=== PATIENT | female | born 1990 | race Hispanic/Latino ===

== ENCOUNTER → 2019-01-07 | Day surgery (SDC) | payer OTHER ==
[2018-12-26 13:16] LABS: BASOPHILS % 0.4 % (0.0-1.0); EOSINOPHILS # (AUTO) 0.1 (0.0-0.4); EOSINOPHILS % 1.5 % (0.0-6.0); HEMATOCRIT 40.1 % (34.2-44.1); HEMOGLOBIN 13.8 g/dL (12.0-16.0); LYMPHOCYTES # (AUTO) 2.9 (1.0-3.2); MEAN CORPUSCULAR HEMOGLOBIN 30.3 pg (28-32); MEAN CORPUSCULAR HGB CONC 34.4 g/dL (31-35); MEAN CORPUSCULAR VOLUME 88.1 fL (81-99); MONOCYTES # (AUTO) 0.9 (0.2-0.8); MONOCYTES % 9.5 % (4.4-11.3); NEUTROPHILS # (AUTO) 5.4 (2.1-6.9); NEUTROPHILS % 57.5 % (38.7-80.0); PLATELET COUNT 282 x10e3/uL (140-360); RED BLOOD COUNT 4.55 x10e6/uL (3.6-5.1); RED CELL DISTRIBUTION WIDTH 11.9 % (11.7-14.4)
[~2019-01-07] MED LIST: ACETAMINOPHEN 1000 MG/100 ML IV ONE; BIRTH CONTROL PO; BUPIVACAINE 0.25%/EPI 30ML SDV INJ ONE; CEFAZOLIN SOD 1 GM VIAL ONE; DEXAMETHASONE SOD PHOS INJ 4 MG/ML VIAL ONE; FENTANYL CITRATE/PF 100MCG/2 ML INJ ONE; GLYCOPYRROLATE INJ 1MG/ 5 ML SYR ONE; KETOROLAC TROMETHAMINE 30 MG/ML VIAL ONE; LIDOCAINE HCL 2% LOCAL INJ 5 ML SDV VIAL INJ ONE; METOCLOPRAMIDE HCL 10 MG/2ML VIAL ONE; MIDAZOLAM HCL 2 MG/2 ML VIAL ONE; NEOSTIGMINE 5 MG/5ML SYR ONE; ONDANSETRON HCL INJ 2MG/ML 2ML 2 MG/ML VIAL ONE; PROPOFOL IV EMULSION 10 MG/ML 20 ML VIAL ONE; ROCURONIUM BROMIDE 10 MG/ML 5ML VIAL ONE; SEVOFLURANE INHAL SOLN 250 ML PEN BTL ONE; ULTRAM 50MG50 MG PO
--- OUTSIDE RECORDS SUMMARY | 2019-01-07 05:33 | XMS REPORT | Clinical Summary ---
Author Author [facility] Organization [facility] Address Unknown Phone Unavailable Care Team Providers Care Stem Roller Or Crusher Operator Name Role Phone PCP Unavailable Allergies No Known Allergies Medications End Date Status Medication Sig Dispensed Refills Start Date Active traMADol (ULTRAM) 50 mg Take 1 tablet 15 tablet 0 tabletIndications: by mouth 9 Chronic pelvic pain in every 6 hours female as needed for Pain. 11/06/2018 Discontinued doxycycline monohydrate Take 1 26 capsule 0 (MONODOX) 100 mg capsule capsule by 9 mouth 2 times daily for 13 days Pt received one dose here while in ED. Active Problems Problem Noted Date Pelvic pain in female PID (acute pelvic inflammatory disease) Encounters Care Team Description Date Type Specialty Tera Acevedo MD Pelvic pain in female (Primary Dx); Menorrhagia with irregular cycle; Chronic pelvic pain in female 11/05/2018 Emergency Emergency Medicine - 11/06/2018 11/05/2018 Travel after 01/06/2018 Social History Date Tobacco Use Types Packs/Day Years Used Never Smoker Smokeless Tobacco: Never Used Drinks/Week oz/Week Comments Alcohol Use Yes Sex Assigned at Date Recorded Not on file Industry Job Start Date Occupation Not on file Not on file Not on file Travel End Travel History Travel Start No recent travel history available. Last Filed Vital Signs Reading Time Taken Comments Vital Sign 112/64 11/06/2018 11:03 AM CDT Blood Pressure 68 11/06/2018 11:03 AM CDT Pulse 36.8 C (98.3 F) 11/06/2018 11:03 AM CDT Temperature 20 11/06/2018 11:03 AM CDT Respiratory Rate 100% 11/06/2018 11:03 AM CDT Oxygen Saturation - - Inhaled Oxygen Concentration 70.3 kg (154 lb 14.4 oz) 11/05/2018 11:39 AM CDT Weight 152.4 cm (5') 11/05/2018 11:39 AM CDT Height 30.25 11/05/2018 11:39 AM CDT Body Mass Index Plan of Treatment Health Maintenance Due Date Last Done Comments Cervical Cancer Scrn (3 2011 Yrs) IMM Influenza Seasonal 04/01/2019 Oct to August (>/=19 yrs) Procedures Comments Procedure Name Priority Date/Time Associated Diagnosis U/S PELVIS LTD NON-OB STAT 11/06/2018 Pelvic pain in female 9:44 AM CDT U/S TRANSVAGINAL STAT 11/06/2018 Pelvic pain in female 9:44 AM CDT DUPLEX DOPPLER ABD/PEL STAT 11/06/2018 Pelvic pain in female VASCULAR STUDY, COMPLETE 9:44 AM CDT GENITAL WET MOUNT WITH STAT 11/06/2018 ROSITA 3:00 AM CDT CHLAM/GC DNA AMPLI STAT 11/06/2018 3:00 AM CDT BMP POC Routine 11/05/2018 11:42 AM CDT TEST STAT 11/05/2018 11:36 AM CDT HIV-1/HIV-2 ROUTINE STAT 11/05/2018 SCREENING 11:36 AM CDT URINALYSIS STAT 11/05/2018 11:36 AM CDT LIPASE STAT 11/05/2018 11:36 AM CDT LIVER PROFILE STAT 11/05/2018 11:36 AM CDT CBC/DIFF STAT 11/05/2018 11:36 AM CDT after 01/06/2018 Results * U/S PELVIS LTD NON-OB (11/06/2018 9:44 AM CDT) Specimen Impressions Performed At IMPRESSION: SMS Unremarkable pelvic ultrasound exam. Specifically, no evidence of ovarian torsion. A "PRELIMINARY" report was made available via [employer] at the time of dictation by the resident indicated below. The report is finalized if attending/staff radiologist signature is included. Dictated By: Colten Duran DO, 11/06/2018 10:05 AM I have reviewed the study and agree with the findings in this report. Signed By: Sunil Ryan MD, 11/06/2018 10:11 AM Narrative Performed At EXAM: Transabdominal and Transvaginal Pelvic Ultrasound SMS INDICATION: RLQ, LLQ pain COMPARISON: None TECHNIQUE: Grayscale transverse and sagittal transabdominal and transvaginal images were obtained of the pelvis. Transvaginal imaging was medically necessary to better evaluate the endometrium and the adnexa. Color Doppler and spectral waveform analysis. CLINICAL HISTORY: 28 year old A0; last menstrual period: 10/27/2018. FINDINGS: Uterus Orientation: Retroverted and retroflexed. Size: 8.3 x 4.5 x 4.9 cm Mass: None Cervix: Small nabothian cyst Endometrium: Thickness: 0.4 cm Appearance:Homogeneous echotexture without focal thickening. Right ovary: Size:2.7 x 3.6 x 1.9 cm Mass/Cyst: None Left ovary: Size: 2.5 x 3.9 x 2.0 cm Mass/Cyst: 1.5 x 1.2 x 1.3 cyst. Patient experienced pain while scanning over ovaries. Vascular flow detected in both ovaries. Adnexa: Normal Cul-de-sac: No free fluid Procedure Note Interface, Rad/Mammog In - 11/06/2018 10:16 AM CDT EXAM: Transabdominal and Transvaginal Pelvic Ultrasound INDICATION: RLQ, LLQ pain COMPARISON: None TECHNIQUE: Grayscale transverse and sagittal transabdominal and transvaginal images were obtained of the pelvis. Transvaginal imaging was medically necessary to better evaluate the endometrium and the adnexa. Color Doppler and spectral waveform analysis. CLINICAL HISTORY: 28 year old A0; last menstrual period: 10/27/2018. FINDINGS: Uterus Orientation: Retroverted and retroflexed. Size: 8.3 x 4.5 x 4.9 cm Mass: None Cervix: Small nabothian cyst Endometrium: Thickness: 0.4 cm Appearance: Homogeneous echotexture without focal thickening. Right ovary: Size: 2.7 x 3.6 x 1.9 cm Mass/Cyst: None Left ovary: Size: 2.5 x 3.9 x 2.0 cm Mass/Cyst: 1.5 x 1.2 x 1.3 cyst. Patient experienced pain while scanning over ovaries. Vascular flow detected in both ovaries. Adnexa: Normal Cul-de-sac: No free fluid IMPRESSION IMPRESSION: Unremarkable pelvic ultrasound exam. Specifically, no evidence of ovarian torsion. A "PRELIMINARY" report was made available via [employer] at the time of dictation by the resident indicated below. The report is finalized if attending/staff radiologist signature is included. Dictated By: Colten Duran DO, 11/06/2018 10:05 AM I have reviewed the study and agree with the findings in this report. Signed By: Sunil Ryan MD, 11/06/2018 10:11 AM Performing Organization Address City/State/Zipcode Phone Number [facility] * U/S TRANSVAGINAL (11/06/2018 9:44 AM CDT) Specimen Impressions Performed At IMPRESSION: SMS Unremarkable pelvic ultrasound exam. Specifically, no evidence of ovarian torsion. A "PRELIMINARY" report was made available via [employer] at the time of dictation by the resident indicated below. The report is finalized if attending/staff radiologist signature is included. Dictated By: Colten Duran DO, 11/06/2018 10:05 AM I have reviewed the study and agree with the findings in this report. Signed By: Sunil Ryan MD, 11/06/2018 10:11 AM Narrative Performed At EXAM: Transabdominal and Transvaginal Pelvic Ultrasound [facility] INDICATION: RLQ, LLQ pain COMPARISON: None TECHNIQUE: Grayscale transverse and sagittal transabdominal and transvaginal images were obtained of the pelvis. Transvaginal imaging was medically necessary to better evaluate the endometrium and the adnexa. Color Doppler and spectral waveform analysis. CLINICAL HISTORY: 28 year old A0; last menstrual period: 10/27/2018. FINDINGS: Uterus Orientation: Retroverted and retroflexed. Size: 8.3 x 4.5 x 4.9 cm Mass: None Cervix: Small nabothian cyst Endometrium: Thickness: 0.4 cm Appearance:Homogeneous echotexture without focal thickening. Right ovary: Size:2.7 x 3.6 x 1.9 cm Mass/Cyst: None Left ovary: Size: 2.5 x 3.9 x 2.0 cm Mass/Cyst: 1.5 x 1.2 x 1.3 cyst. Patient experienced pain while scanning over ovaries. Vascular flow detected in both ovaries. Adnexa: Normal Cul-de-sac: No free fluid Procedure Note Interface, Rad/Mammog In - 11/06/2018 10:16 AM CDT EXAM: Transabdominal and Transvaginal Pelvic Ultrasound INDICATION: RLQ, LLQ pain COMPARISON: None TECHNIQUE: Grayscale transverse and sagittal transabdominal and transvaginal images were obtained of the pelvis. Transvaginal imaging was medically necessary to better evaluate the endometrium and the adnexa. Color Doppler and spectral waveform analysis. CLINICAL HISTORY: 28 year old A0; last menstrual period: 10/27/2018. FINDINGS: Uterus Orientation: Retroverted and retroflexed. Size: 8.3 x 4.5 x 4.9 cm Mass: None Cervix: Small nabothian cyst Endometrium: Thickness: 0.4 cm Appearance: Homogeneous echotexture without focal thickening. Right ovary: Size: 2.7 x 3.6 x 1.9 cm Mass/Cyst: None Left ovary: Size: 2.5 x 3.9 x 2.0 cm Mass/Cyst: 1.5 x 1.2 x 1.3 cyst. Patient experienced pain while scanning over ovaries. Vascular flow detected in both ovaries. Adnexa: Normal Cul-de-sac: No free fluid IMPRESSION IMPRESSION: Unremarkable pelvic ultrasound exam. Specifically, no evidence of ovarian torsion. A "PRELIMINARY" report was made available via [employer] at the time of dictation by the resident indicated below. The report is finalized if attending/staff radiologist signature is included. Dictated By: Colten Duran DO, 11/06/2018 10:05 AM I have reviewed the study and agree with the findings in this report. Signed By: Sunil Ryan MD, 11/06/2018 10:11 AM Performing Organization Address City/State/Zipcode Phone Number SMS * DUPLEX DOPPLER ABD/PEL VASCULAR STUDY, COMPLETE (11/06/2018 9:44 AM CDT) Specimen Impressions Performed At IMPRESSION: SMS Unremarkable pelvic ultrasound exam. Specifically, no evidence of ovarian torsion. A "PRELIMINARY" report was made available via [employer] at the time of dictation by the resident indicated below. The report is finalized if attending/staff radiologist signature is included. Dictated By: Colten Duran DO, 11/06/2018 10:05 AM I have reviewed the study and agree with the findings in this report. Signed By: Sunil Ryan MD, 11/06/2018 10:11 AM Narrative Performed At EXAM: Transabdominal and Transvaginal Pelvic Ultrasound SMS INDICATION: RLQ, LLQ pain COMPARISON: None TECHNIQUE: Grayscale transverse and sagittal transabdominal and transvaginal images were obtained of the pelvis. Transvaginal imaging was medically necessary to better evaluate the endometrium and the adnexa. Color Doppler and spectral waveform analysis. CLINICAL HISTORY: 28 year old A0; last menstrual period: 10/27/2018. FINDINGS: Uterus Orientation: Retroverted and retroflexed. Size: 8.3 x 4.5 x 4.9 cm Mass: None Cervix: Small nabothian cyst Endometrium: Thickness: 0.4 cm Appearance:Homogeneous echotexture without focal thickening. Right ovary: Size:2.7 x 3.6 x 1.9 cm Mass/Cyst: None Left ovary: Size: 2.5 x 3.9 x 2.0 cm Mass/Cyst: 1.5 x 1.2 x 1.3 cyst. Patient experienced pain while scanning over ovaries. Vascular flow detected in both ovaries. Adnexa: Normal Cul-de-sac: No free fluid Procedure Note Interface, Rad/Mammog In - 11/06/2018 10:16 AM CDT EXAM: Transabdominal and Transvaginal Pelvic Ultrasound INDICATION: RLQ, LLQ pain COMPARISON: None TECHNIQUE: Grayscale transverse and sagittal transabdominal and transvaginal images were obtained of the pelvis. Transvaginal imaging was medically necessary to better evaluate the endometrium and the adnexa. Color Doppler and spectral waveform analysis. CLINICAL HISTORY: 28 year old A0; last menstrual period: 10/27/2018. FINDINGS: Uterus Orientation: Retroverted and retroflexed. Size: 8.3 x 4.5 x 4.9 cm Mass: None Cervix: Small nabothian cyst Endometrium: Thickness: 0.4 cm Appearance: Homogeneous echotexture without focal thickening. Right ovary: Size: 2.7 x 3.6 x 1.9 cm Mass/Cyst: None Left ovary: Size: 2.5 x 3.9 x 2.0 cm Mass/Cyst: 1.5 x 1.2 x 1.3 cyst. Patient experienced pain while scanning over ovaries. Vascular flow detected in both ovaries. Adnexa: Normal Cul-de-sac: No free fluid IMPRESSION IMPRESSION: Unremarkable pelvic ultrasound exam. Specifically, no evidence of ovarian torsion. A "PRELIMINARY" report was made available via [employer] at the time of dictation by the resident indicated below. The report is finalized if attending/staff radiologist signature is included. Dictated By: Colten Duran DO, 11/06/2018 10:05 AM I have reviewed the study and agree with the findings in this report. Signed By: Sunil Ryan MD, 11/06/2018 10:11 AM Performing Organization Address [facility] Phone Number SMS * CHLAM/GC DNA AMPLI (11/06/2018 3:00 AM CDT) Chlamydia trach Negative BT DIAGNOSTIC IMMUNOLOGY N gonorrhoeae Negative BT DIAGNOSTIC This test utilizes [employer] Aptima Combo 2 Assay for target amplification of rRNA for the qualitative detection of Chlamydia trachomatis and Neisseria gonorrhea. Spec Endovervical BT MAIN-STATION Description 2 Specimen Cervix - Endocervical Swab Performing Organization Address [facility] Phone Number MISYS BT DIAGNOSTIC IMMUNOLOGY BT MAIN-STATION 2 * WET MOUNT (11/06/2018 3:00 AM CDT) Spec Cervix BT MICROBIOLOGY Description Order Comments None BT MICROBIOLOGY Exam WBC's seen BT MICROBIOLOGY Epithelial cells No Clue cells seen No Trichomonas seen No yeast seen Report Status Final 11/06/2018 BT MICROBIOLOGY Specimen Cervix - Cervix, NOS Performing Organization Address [facility] Phone Number MISYS BT MICROBIOLOGY * BMP POC (11/05/2018 11:42 AM CDT) CO2 POC 25 21 - 32 mmol/L BT MAIN-STATION 1 Chloride POC 103 98 - 107 mmol/L BT MAIN-STATION 1 Potassium POC 3.7 3.50 - 5.10 mmol/L BT MAIN-STATION 1 Sodium POC 140 136 - 145 mmol/L BT MAIN-STATION 1 Glucose POC 88 74 - 106 mg/dL BT MAIN-STATION 1 Urea Nitrogen 12 7 - 18 mg/dL BT MAIN-STATION POC 1 Creatinine POC 0.7 0.6 - 1.3 mg/dL BT MAIN-STATION 1 Calcium Ionized 1.16 1.15 - 1.29 mmol/L BT MAIN-STATION POC 1 Hemoglobin POC 15.0 12.0 - 16.0 g/dL BT MAIN-STATION 1 Hematocrit POC 44.0 37.0 - 47.0 % BT MAIN-STATION 1 GFR, Estimated >60 mL/min/1.73 m2 BT MAIN-STATION 1 GFR, Estim, >60 mL/min/1.73 m2 BT MAIN-STATION Afr-Am 1 Specimen Performing Organization Address [facility] Phone Number [facility] * HIV-1/HIV-2 ROUTINE SCREENING (11/05/2018 11:36 AM CDT) HIV-1/HIV-2 Negative NEG BT MAIN-STATION 3 Specimen Performing Organization Address [facility] Phone Number [facility] 3 * UA CHEMISTRIES (11/05/2018 11:36 AM CDT) Color Straw BT MAIN-STATION 3 Clarity Clear BT MAIN-STATION 3 Specific 1.005 1.001 - 1.035 BT MAIN-STATION [place] 3 pH 7.0 5 - 8 BT MAIN-STATION 3 Protein Negative NEG BT MAIN-STATION 3 Glucose Negative NEG BT MAIN-STATION 3 Ketones Negative NEG BT MAIN-STATION 3 Bilirubin Negative NEG BT MAIN-STATION 3 Nitrate Negative NEG BT MAIN-STATION 3 Urobilinogen,Se <1.0 0.2 - 1.0 EU/dL BT MAIN-STATION mi-Qn 3 Leukocyte Negative NEG BT MAIN-STATION 3 Occult Blood Negative NEG BT MAIN-STATION 3 Specimen Urine Performing Organization Address [facility] Phone Number [facility] 3 * TEST (11/05/2018 11:36 AM CDT) Negative BT MAIN-STATION 3 Specimen Urine Performing Organization Address [facility] Phone Number [facility] BT MAIN-STATION 3 * LIVER PROFILE (11/05/2018 11:36 AM CDT) Protein, Total, 7.3 6.0 - 8.3 g/dL BT MAIN-STATION Serum 1 Albumin 4.1 3.7 - 5.3 g/dL BT MAIN-STATION 1 Bilirubin, 0.4 0.2 - 1.2 mg/dL BT MAIN-STATION Total 1 Alkaline 80 34 - 104 U/L BT MAIN-STATION Phosphatase, S 1 AST (SGOT) 14 13 - 39 U/L BT MAIN-STATION 1 ALT 9 7 - 52 U/L BT MAIN-STATION 1 D Bilirubin 0.1 0.0 - 0.2 mg/dL BT MAIN-STATION 1 Specimen Blood Performing Organization Address [facility]/Zipcode Phone Number MISYS BT MAIN-STATION 1 * LIPASE (11/05/2018 11:36 AM CDT) Lipase 32 11 - 82 U/L BT MAIN-STATION 1 Specimen Blood Performing Organization Address [facility] Phone Number MIS[facility] BT [facility]IN-[facility] 1 * CBC/DIFF (11/05/2018 11:36 AM CDT) WBC 8.6 4.5 - 11.0 K/uL BT MAIN-STATION 2 RBC 4.62 4.20 - 5.40 M/uL BT MAIN-STATION 2 Hemoglobin 14.2 12.0 - 16.0 g/dL BT MAIN-STATION 2 Hematocrit 41.9 37.0 - 47.0 % BT MAIN-STATION 2 MCV 91 82 - 92 fL BT MAIN-STATION 2 MCH 30.7 27.0 - 32.0 pg BT MAIN-STATION 2 MCHC 33.9 32.0 - 36.0 g/dL BT MAIN-STATION 2 RDW 38.6 36.4 - 46.3 fL BT MAIN-STATION 2 Platelets 265 150 - 400 K/uL BT MAIN-STATION 2 Mean Platelet 9.3 (L) 9.4 - 12.4 fL BT MAIN-STATION Volume 2 Percent NRBC 0.0 BT MAIN-STATION 2 Absolute NRBC 0.00 BT MAIN-STATION 2 Neutrophils 50.7 34.0 - 70.0 % BT MAIN-STATION 2 Lymphs 37.5 20.0 - 50.0 % BT MAIN-STATION 2 Monocytes 7.4 5.0 - 12.0 % BT MAIN-STATION 2 Eos 3.7 0.7 - 5.0 % BT MAIN-STATION 2 Basos 0.5 0.1 - 1.2 % BT MAIN-STATION 2 Immature 0.2 0.0 - 0.5 BT MAIN-STATION Granulocytes 2 Neutrophils 4.38 1.56 - 6.13 K/uL BT MAIN-STATION (Absolute) 2 Lymphs 3.24 1.18 - 3.74 K/uL BT MAIN-STATION (Absolute) 2 Monocytes(Absol 0.64 (H) 0.24 - 0.36 K/uL BT MAIN-STATION laisha) 2 Eos (Absolute) 0.32 0.04 - 0.36 K/uL BT MAIN-STATION 2 Baso (Absolute) 0.04 0.01 - 0.08 K/uL BT MAIN-STATION 2 Immature Grans 0.02 0.00 - 0.03 K/uL BT MAIN-STATION (Abs) 2 Specimen Blood Performing Organization Address City/State/Zipcode Phone Number MISYS BT MAIN-STATION 2 after 01/06/2018 Insurance Type Payer Benefit Subscriber ID Effective Phone Address Plan / Dates Group LALA LUNSFORD xxxxxxxxxx 2015-P [phone] [address] [facility] [id number] [place] [address]
--- OUTSIDE RECORDS SUMMARY | 2019-01-07 05:34 | XMS REPORT | Continuity of Care Document ---
Author Author [employer] Address Unknown Phone Unavailable Care Team Providers Care Wood Box Maker Name Role Phone Kimengi Unavailable Unavailable Problems Problem Status Onset Date Classification Date Reported Comments Source Headache 08/31/2018 Diagnosis 08/31/2018 [facility] ABD PAIN Active 07/12/2018 [facility] ACUTE APPENDICITIS Active 07/12/2018 [facility] Abnormal EKG Active Diagnosis 10/22/2018 [facility] SOB Active Diagnosis 10/22/2018 [facility] Other symptoms involving cardiovascular system Active Diagnosis 10/22/2018 [facility] Syncope and collapse Active Diagnosis 10/22/2018 [facility] Palpitations Active Diagnosis 10/22/2018 [facility] UNSPECIFIED ACUTE APPENDICITIS Active [facility] Medications Medication Details Route Status Patient Instructions Ordering Provider Order Date Source No Medications Reported No Medications Reported Active [facility] Ibuprofen 1 tablet with food or milk as needed Orally Active 800 MG Orally as needed [facility] Allergies, Adverse Reactions, Alerts Substance Category Reaction Severity Reaction type Status Date Reported Comments Source N.K.D.A. Adverse Reaction Info Not Available Adverse Reaction Active 10/14/2018 [facility] Immunizations Immunization Date Given Site Status Last Updated Comments Source influenza, injectable, quadrivalent 05/01/2018 completed [facility] Results No Data Provided for This Section Pathology Reports No Data Provided for This Section Diagnostic Reports Report Value Date Source Brain Stroke wo contrast CT STUDY: Brain Stroke wo contrast CT 07/14/2018 11:35 [facility]ULATION SPECIALIST Ordering Physician: Celeste Pete MD Patient Name: KELSEA MEZA MR: [id number] : 1990; Age: 27 years y/o Female Clinical Indication: - left sided weakness Comparison: None TECHNIQUE: Multiple contiguous transaxial noncontrast CT images were obtained through the head. Coronal and sagittal reformatted images were prepared. DOSE: CT imaging performed at this location utilizes radiation dose optimization techniques which include one or more of the followin) Automated exposure control; 2) Adjustment of the mA and/or kV according to patient size; 3) Use of iterative reconstruction techniques. Dose DLP: 860 mGy-cm FINDINGS: BRAIN PARENCHYMA: The brain volume is appropriate for age. No evidence of acute intracranial hemorrhage, mass lesion, mass effect, midline shift, or extra-axial fluid collection. VENTRICLES: The lateral ventricles, third ventricle, fourth ventricle, and basilar cisterns are appropriate for degree of atrophy present. PARANASAL SINUSES: The visualized portions of the paranasal sinuses are clear. MASTOIDS: Clear. ORBITS: The visualized portions of the orbits are normal. SOFT TISSUES: No significant abnormality. SKULL: No acute fracture or suspicious osseous lesion. IMPRESSION: 1. No acute intracranial abnormality. Findings discussed with nurse Yen at 1325 07/14/2018 by telephone. Of note, the study was not verified for review until 1316. SL: [id number] 07/14/2018 [facility] ED Abdomen/Pelvis IV contrast only CT Clinical Indication: - acute abd pain LLQ Comparison: None TECHNIQUE: Helical imaging was performed diaphragm through the symphysis with multiplanar reformations obtained. IV CONTRAST: 100cc Omnipaque 300 GI CONTRAST: No CT Radiation Dose: XDE=301.29 mGy-cm FINDINGS: LOWER CHEST: The lung bases are clear. SOLID ORGANS: The liver, gallbladder, spleen, pancreas, adrenal glands and kidneys are normal. BOWEL: Stomach, small and large bowel are unremarkable. Thick-walled, dilated appendix measuring 11 mm in diameter with mild adjacent inflammatory change consistent with acute appendicitis. PERITONEUM: No free air or abscess. No free fluid. RETROPERITONEUM: No pathologic adenopathy. The aorta is normal in caliber. Left gonadal vein embolization coils are noted. PELVIS: No pelvic mass. The urinary bladder is normal. MUSCULOSKELETAL: No acute osseous abnormality. IMPRESSION: Acute appendicitis. No free air or abscess. SL: [id number] 07/13/2018 [facility] Consultation Notes No Data Provided for This Section Discharge Summaries No Data Provided for This Section History and Physicals No Data Provided for This Section Vital Signs Vital Sign Value Date Comments Source Weight 156 10/14/2018 [facility] Height 63 10/14/2018 [facility] Heart Rate 73 10/14/2018 [facility] Diastolic (mm Hg) 62 10/14/2018 [facility] Systolic (mm Hg) 108 10/14/2018 [facility] Weight 154 09/11/2018 [facility] Height 63 09/11/2018 [facility] Heart Rate 70 09/11/2018 [facility] Diastolic (mm Hg) 70 09/11/2018 [facility] Systolic (mm Hg) 107 09/11/2018 [facility] Diastolic (mm Hg) 72 08/30/2018 [facility] Height 64 08/30/2018 [facility] Systolic (mm Hg) 110 08/30/2018 [facility] Weight 140 08/30/2018 [facility] Encounters Location Location Details Encounter Type Encounter Number Reason For Visit Attending Provider ADM Date DC Date Status Source [place] - [facility] - [id number]_OsqqrchyLenore Hutchison, CANDY ATTENDANT-C: [address] [place] [address], Ph. [id number] Janeen Hutchison 08/30/2018 [facility] Procedures Procedure Code Date Perfomer Comments Source Appendectomy [facility] Assessment and Plan No Data Provided for This Section Plan of Care No Data Provided for This Section Social History Social History Date Source Smoking Status Never Smoker 08/31/2018 [facility] Family History No Data Provided for This Section Advance Directives No Data Provided for This Section Functional Status No Data Provided for This Section
--- OUTSIDE RECORDS SUMMARY | 2019-01-07 05:35 | XMS REPORT ---
Author Author Vamshi Harry Organization [employer] Address Unknown Phone Unavailable Care Team Providers Care Recovery Room Rn Name Role Phone Vamshi Harry CP Unavailable Allergies No Known Allergies Problems Problem Type Condition Code Onset Dates Condition Status Assessment Abnormal EKG R94.31 Active Assessment SOB (shortness of breath) R06.02 Active Assessment Syncope and collapse R55 Active Assessment Palpitations R00.2 Active Medications Medication Code System Code Instructions Start Date End Date Status Dosage Ibuprofen [facility] [id number] 800 MG Orally as needed Active 1 tablet with food or milk as needed Results No Known Results Summary Purpose [employer] Submission
--- OUTSIDE RECORDS SUMMARY | 2019-01-07 05:35 | XMS REPORT ---
Author Author Vamshi Harry Organization [employer] Address Unknown Phone Unavailable Care Team Providers Care Lab Engineer Name Role Phone Vamshi Harry CP Unavailable Allergies No Known Allergies Problems Problem Type Condition Code Onset Dates Condition Status Assessment Abnormal EKG R94.31 Active Assessment SOB (shortness of breath) R06.02 Active Assessment Other symptoms involving cardiovascular system R09.89 Active Assessment Syncope and collapse R55 Active Assessment Palpitations R00.2 Active Medications Medication Code System Code Instructions Start Date End Date Status Dosage Ibuprofen [facility] 79201011034 800 MG Orally as needed Active 1 tablet with food or milk as needed Results No Known Results Summary Purpose eClinicalWorks Submission
--- OUTSIDE RECORDS SUMMARY | 2019-01-07 05:35 | XMS REPORT ---
Author Author Vamshi Harry Organization [employer] Address Unknown Phone Unavailable Care Team Providers Care Government Services Professional Name Role Phone Vamshi Harry CP Unavailable Allergies No Known Allergies Problems Problem Type Condition Code Onset Dates Condition Status Assessment Abnormal EKG R94.31 Active Assessment SOB (shortness of breath) R06.02 Active Assessment Other symptoms involving cardiovascular system R09.89 Active Assessment Syncope and collapse R55 Active Assessment Palpitations R00.2 Active Medications Medication Code System Code Instructions Start Date End Date Status Dosage Ibuprofen [facility] 57450385260 800 MG Orally as needed Active 1 tablet with food or milk as needed Results No Known Results Summary Purpose eClinicalWorks Submission
--- OUTSIDE RECORDS SUMMARY | 2019-01-07 05:35 | XMS REPORT ---
Author Author Vamshi Harry Organization [employer] Address Unknown Phone Unavailable Care Team Providers Care Wire Border Assembler Name Role Phone Vamshi Harry CP Unavailable Allergies, Adverse Reactions, Alerts Substance Reaction Event Type N.K.D.A. Info Not Available Non Drug Allergy Problems Problem Type Condition Code Onset Dates Condition Status Assessment Abnormal EKG R94.31 Active Assessment SOB (shortness of breath) R06.02 Active Assessment Other symptoms involving cardiovascular system R09.89 Active Assessment Syncope and collapse R55 Active Assessment Palpitations R00.2 Active Medications Medication Code System Code Instructions Start Date End Date Status Dosage Ibuprofen [facility] 60128995674 800 MG Orally as needed Active 1 tablet with food or milk as needed Vital Signs Date/Time: October 14, 2018 BMI 27.63 Index Weight 156 lbs Height 63 in Cardiac Monitoring Heart Rate 73 /min Blood Pressure Diastolic 62 mm Hg Blood Pressure Systolic 108 mm Hg Results No Known Results Summary Purpose eClinicalWorks Submission
--- OUTSIDE RECORDS SUMMARY | 2019-01-07 05:35 | XMS REPORT ---
Author Author Vamshi Harry Organization [employer] Address Unknown Phone Unavailable Care Team Providers Care Purchasing Department Clerk Name Role Phone Vamshi Harry CP Unavailable Allergies No Known Allergies Problems Problem Type Condition Code Onset Dates Condition Status Assessment Abnormal EKG R94.31 Active Assessment SOB (shortness of breath) R06.02 Active Assessment Other symptoms involving cardiovascular system R09.89 Active Assessment Syncope and collapse R55 Active Assessment Palpitations R00.2 Active Medications Medication Code System Code Instructions Start Date End Date Status Dosage Ibuprofen [facility] [id number] 800 MG Orally as needed Active 1 tablet with food or milk as needed Results No Known Results Summary Purpose eClinicalWorks Submission
--- OUTSIDE RECORDS SUMMARY | 2019-01-07 05:35 | XMS REPORT ---
Author Author [facility] Address Unknown Phone Unavailable Care Team Providers Care Security Systems Manager Name Role Phone Unavailable Unavailable Payers Payer Name Policy Type Policy Number Effective Date Expiration Date Problems This patient has no known problems. Allergies, Adverse Reactions, Alerts Allergy Name Allergy Type Status Severity Reaction(s) Onset Date Inactive Date Treating Clinician Comments latex DA Active MO 2018-01-14 00:00:00 Medications This patient has no known medications. Encounters Start Date/Time End Date/Time Encounter Type Admission Type Attending Clinicians [facility] Care Department Encounter ID 2018-11-06 08:35:20 2018-11-06 08:35:20 Emergency [facility] [id number] 2018-11-06 08:35:16 2018-11-06 08:35:16 Emergency [facility] [id number] 2018-11-05 22:39:51 2018-11-05 22:39:51 Emergency [facility] [id number]
--- OUTSIDE RECORDS SUMMARY | 2019-01-07 05:35 | XMS REPORT ---
Author Author Vamshi Harry Organization [employer] Address Unknown Phone Unavailable Care Team Providers Care Slab Polisher Name Role Phone Vamshi Harry CP Unavailable [...] Date End Date Status Dosage Ibuprofen [facility] [id number] 800 MG Orally as needed Active 1 tablet with food or milk as needed Vital Signs Date/Time: September 11, 2018 BMI 27.28 Index Weight 154 lbs Height 63 in Cardiac Monitoring Heart Rate 70 /min Blood Pressure Diastolic 70 mm Hg Blood Pressure Systolic 107 mm Hg Results No Known Results Summary Purpose eClinicalWorks Submission
--- OUTSIDE RECORDS SUMMARY | 2019-01-07 05:35 | XMS REPORT | Encounter Summary ---
Author Organization Unknown Address [address] [place] [address] Phone [phone] Reason for Visit Medical Complaint Instructions 1. Headache headache: care instructions Discussion Note: None recorded. Plan of Care Patient Instructions Headaches have many possible causes. Most headaches aren't a sign of a more serious problem, and they will get better on their own. Home treatment may help you feel better faster. The doctor has checked you carefully, but problems can develop later. If you notice any problems or new symptoms, get medical treatment right away. Follow-up care is a brown part of your treatment and safety. Be sure to make and go to all appointments, and call your doctor if you are having problems. It's also a good idea to know your test results and keep a list of the medicines you take. How can you care for yourself at home? Do not drive if you have taken a prescription pain medicine. Rest in a quiet, dark room until your headache is gone. Close your eyes and try to relax or go to sleep. Don't watch TV or read. Put a cold, moist cloth or cold pack on the painful area for 10 to 20 minutes at a time. Put a thin cloth between the cold pack and your skin. Use a warm, moist towel or a heating pad set on low to relax tight shoulder and neck muscles. Have someone gently massage your neck and shoulders. Take pain medicines exactly as directed. If the doctor gave you a prescription medicine for pain, take it as prescribed. If you are not taking a prescription pain medicine, ask your doctor if you can take an [id number] medicine. Be careful not to take pain medicine more often than the instructions allow, because you may get worse or more frequent headaches when the medicine wears off. Do not ignore new symptoms that occur with a headache, such as a fever, weakness or numbness, vision changes, or confusion. These may be signs of a more serious problem. To prevent headaches Keep a headache diary so you can figure out what triggers your headaches. Avoiding triggers may help you prevent headaches. Record when each headache began, how long it lasted, and what the pain was like (throbbing, aching, stabbing, or dull). Write down any other symptoms you had with the headache, such as nausea, flashing lights or dark spots, or sensitivity to bright light or loud noise. Note if the headache occurred near your period. List anything that might have triggered the headache, such as certain foods (chocolate, cheese, wine) or odors, smoke, bright light, stress, or lack of sleep. Find healthy ways to deal with stress. Headaches are most common during or right after stressful times. Take time to relax before and after you do something that has caused a headache in the past. Try to keep your muscles relaxed by keeping good posture. Check your jaw, face, neck, and shoulder muscles for tension, and try relaxing them. When sitting at a desk, change positions often, and stretch for 30 seconds each hour. Get plenty of sleep and exercise. Eat regularly and well. Long periods without food can trigger a headache. Treat yourself to a massage. Some people find that regular massages are very helpful in relieving tension. Limit caffeine by not drinking too much coffee, tea, or soda. But don't quit caffeine suddenly, because that can also give you headaches. Reduce eyestrain from computers by blinking frequently and looking away from the computer screen every so often. Make sure you have proper eyewear and that your monitor is set up properly, about an arm's length away. Seek help if you have depression or anxiety. Your headaches may be linked to these conditions. Treatment can both prevent headaches and help with symptoms of anxiety or depression. When should you call for help? Call 911 anytime you think you may need emergency care. For example, call if: You have signs of a stroke. These may include: Sudden numbness, paralysis, or weakness in your face, arm, or leg, especially on only one side of your body. Sudden vision changes. Sudden trouble speaking. Sudden confusion or trouble understanding simple statements. Sudden problems with walking or balance. A sudden, severe headache that is different from past headaches. Call your doctor now or seek immediate medical care if: You have a new or worse headache. Your headache gets much worse. Reminders Provider Appointments None recorded. Lab None recorded. Referral None recorded. Procedures None recorded. Surgeries None recorded. Imaging None recorded. Medications No Medications Reported Medications Administered None recorded. Vitals Height Weight BMI Blood Pressure 5 ft 4 in 140 lbs 24 kg/m2 110/72 mm[Hg] Lab Results None recorded. Allergies Code Code System Name Reaction Severity Status Onset NKDA Problems No Known Problems Procedures Date Name Performed by Appendectomy Information not available Vaccine List Vaccine Type influenza, injectable, quadrivalent 05/01/2018 Social History Smoking Status Never Smoker Past Encounters 08/30/2018 Headache Janeen Hutchison, CONVEYANCER-C: [address] [place] [address], Ph. History of Present Illness Headache Reported By: Patient HPI: Location: frontal, temporal. Quality: not the worst headache ever, similar to previous headaches. Severity: pain level 5/10. Context: not related to trauma. Modifying factors: OTC medication. Associated Symptoms: no fever/chills, no muscle aches, no headache, no vomiting, no sensitivity to light, tearing/watery eyes, no confusion, no slurred speech, no preceeding aura, no double vision, normal feeling/sensation, no motor paralysis, no dizziness, no sleep disturbances, no nosebleeds, no hoarseness, no sore throat, no hearing loss, photophobia Review of Systems:ROS as noted in the HPI Review of Systems Basic Reported By: Patient Physical Exam Adult Basic, Adult Female Complete Reported By: Patient Constitutional: General Appearance: healthy-appearing, well-nourished, well-developed. Level of Distress: NAD. Ambulation: ambulating normally Psychiatric: Mental Status: active and alert. Orientation: to time, to place, to person Eyes: Lids and Conjunctivae: non-injected, no discharge. Pupils: PERRLA. EOM: EOMI Lungs: Respiratory effort: no dyspnea, no tachypnea, no use of accessory muscles, no intercostal retractions. Auscultation: breath sounds normal Cardiovascular: Heart Auscultation: RRR, no murmurs Neurologic: Gait and Station: normal gait, normal station
--- OUTSIDE RECORDS SUMMARY | 2019-01-07 05:35 | XMS REPORT ---
Author Author Vamshi Harry Organization [employer] Address Unknown Phone Unavailable Care Team Providers Care Fruit Harvester Machine Operator Name Role Phone Vamshi Harry CP Unavailable Allergies No Known Allergies Problems Problem Type Condition Code Onset Dates Condition Status Assessment Abnormal EKG R94.31 Active Assessment SOB (shortness of breath) R06.02 Active Assessment Other symptoms involving cardiovascular system R09.89 Active Assessment Syncope and collapse R55 Active Assessment Palpitations R00.2 Active Medications Medication Code System Code Instructions Start Date End Date Status Dosage Ibuprofen [facility] [id number] 800 MG Orally as needed Active 1 tablet with food or milk as needed Results No Known Results Summary Purpose eClinicalWorks Submission
[2019-01-07 11:16] VITALS: BP 115/71
--- NOTE | 2019-01-21 15:13 | Operative Report ---
DATE OF PROCEDURE: 01/07/2019 SURGEON: Radha Patiño MD SITE LEAD: None. PREOPERATIVE DIAGNOSIS: Chronic pelvic pain and abnormal uterine bleeding. POSTOPERATIVE DIAGNOSIS: Endometriosis. PROCEDURES PERFORMED: Diagnostic hysteroscopy, dilatation and curettage, diagnostic laparoscopy with peritoneal biopsy, ablation of endometriosis, and left paratubal cystectomy. ANESTHESIA: General. ESTIMATED BLOOD LOSS: 10 mL. COMPLICATIONS: None. FINDINGS: On hysteroscopy, no abnormalities were noted within the uterine cavity. On laparoscopy, multiple implants of endometriosis were noted around the patient's pelvis in the cul-de-sac on the posterior uterus in the ovarian beds bilaterally. A left paratubal cyst was also noted. SPECIMENS: Included peritoneal biopsy and left paratubal cyst and endometrial curettings. INDICATIONS: The patient is a 28-year-old female with a longstanding history of chronic pelvic pain refractory to medical management as well as abnormal uterine bleeding. PROCEDURE NOTE: Prior to the procedure, the risks, benefits, indications, and alternatives were discussed and the patient agreed to proceed. Following anesthesia, the patient was placed in modified dorsal lithotomy position in [facility]. Prepping and draping was performed in typical sterile fashion and a time-out was done. A weighted speculum was placed in the vagina. A Simms catheter was placed in the patient's bladder. The cervix was then grasped with a single-tooth tenaculum and the cervix was sequentially dilated and hysteroscope inserted with the findings as previously mentioned. The TruClear device was then inserted into the hysteroscope and used to perform an endometrial curettage under direct visualization. A sharp curettage was then performed until a gritty texture was noted. Endometrial tissue was sent to pathology. The hysteroscope was then removed from the patient and a uterine manipulator was placed. The single-tooth tenaculum was then removed. Attention was turned to the patient's abdomen. The infraumbilical port site was identified and injected with solution of 0.25% Marcaine with epinephrine and a small vertical infraumbilical incision was made with a scalpel. A 5 mm trocar was placed at the umbilicus under direct visualization with a 5 mm laparoscope. Survey of the abdomen and pelvis were done with the findings noted above. Two additional ports were then placed in the patient's left lower quadrant after injection with Marcaine. A 5 mm port was placed approximately 4 cm anterior and superior to the ASIS and a 5 mm port was placed approximately 5 fingerbreadths above this. Both were inserted atraumatically under direct visualization with the laparoscope. Biopsies were then taken from the pelvic, cul-de-sac and peritoneum using laparoscopic scissors as well as LigaSure device. All sites were made hemostatic with monopolar cautery. Additional endometriosis implants were then ablated using monopolar cautery. The pelvis was irrigated and all sites were found to be hemostatic. The left paratubal cyst was placed on gentle tension and serially excised using the LigaSure device. All ports were then removed under direct visualization and the abdomen was desufflated. The skin incisions were closed with 3-0 Monocryl in a subcuticular fashion and all three port sites were closed with Dermabond. All sponge, lap, needle, and instrument counts were correct at the end of the procedure. The uterine manipulator was removed and the tenaculum sites noted to be hemostatic. The patient was awakened from anesthesia and brought to the recovery room in stable condition. MD ADI Yin/MODL /[id number]
== END | disposition home or self-care (01) ==
LOC: OR 05:22
PROVIDERS: ATTEND Obstetrics & Gynecology Obstetrics
DX: N80.1 Endometriosis of ovary (principal); N80.3 Endometriosis of pelvic peritoneum; N80.0 Endometriosis of uterus; N80.8 Other endometriosis; N83.8 Other noninflammatory disorders of ovary, fallopian tube and broad ligament; Z01.812 Encounter for preprocedural laboratory examination; Z91.040 Latex allergy status
CPT/HCPCS: 36415; 58558; 58662; 81025; 84702; 85025; 88304; 88305; J0131; J0690; J1100; J1885; J2001; J2250; J2405; J2704; J2765; J3490; J3010

== ENCOUNTER 2019-01-11 19:16 | Emergency (ER) | payer OTHER ==
[~2019-01-11] VITALS: Ht 160 cm; Wt 72.6 kg
[~2019-01-11 19:16] MED LIST changes: -ACETAMINOPHEN 1000 MG/100 ML IV ONE; -BUPIVACAINE 0.25%/EPI 30ML SDV INJ ONE; -CEFAZOLIN SOD 1 GM VIAL ONE; -DEXAMETHASONE SOD PHOS INJ 4 MG/ML VIAL ONE; -FENTANYL CITRATE/PF 100MCG/2 ML INJ ONE; -GLYCOPYRROLATE INJ 1MG/ 5 ML SYR ONE; -KETOROLAC TROMETHAMINE 30 MG/ML VIAL ONE; -LIDOCAINE HCL 2% LOCAL INJ 5 ML SDV VIAL INJ ONE; -METOCLOPRAMIDE HCL 10 MG/2ML VIAL ONE; -MIDAZOLAM HCL 2 MG/2 ML VIAL ONE; -NEOSTIGMINE 5 MG/5ML SYR ONE; -ONDANSETRON HCL INJ 2MG/ML 2ML 2 MG/ML VIAL ONE; -PROPOFOL IV EMULSION 10 MG/ML 20 ML VIAL ONE; -ROCURONIUM BROMIDE 10 MG/ML 5ML VIAL ONE; -SEVOFLURANE INHAL SOLN 250 ML PEN BTL ONE
--- OUTSIDE RECORDS SUMMARY | 2019-01-11 19:27 | XMS REPORT | Clinical Summary ---
Author Author [facility] Organization [facility] Address Unknown Phone Unavailable Care Team Providers Care Diet Supervisor Name Role Phone PCP Unavailable Allergies No [...] Emergency Medicine - 11/06/2018 11/05/2018 Travel after 01/10/2018 Social History Date Tobacco Use Types Packs/Day [...] CBC/DIFF STAT 11/05/2018 11:36 AM CDT after 01/10/2018 Results * U/S PELVIS LTD NON-OB (11/06/2018 9:44 AM CDT) Specimen Impressions Performed At IMPRESSION: SMS Unremarkable pelvic ultrasound exam. Specifically, no evidence of ovarian torsion. A "PRELIMINARY" report was made available via Crovat at the time of dictation by the [...] A "PRELIMINARY" report was made available via Crovat at the time of dictation by the resident indicated below. The report is finalized if attending/staff radiologist signature is included. Dictated By: Colten Duran DO, 11/06/2018 10:05 AM I have reviewed the study and agree with the findings in this report. Signed By: Sunil Ryan MD, 11/06/2018 10:11 AM Performing Organization Address City/State/Zipcode Phone Number [facility] * U/S TRANSVAGINAL (11/06/2018 9:44 AM CDT) Specimen Impressions Performed At IMPRESSION: SMS Unremarkable pelvic ultrasound exam. Specifically, no evidence of ovarian torsion. A "PRELIMINARY" report was made available via Crovat at the time of dictation by the resident indicated below. The report is finalized if attending/staff radiologist signature is included. Dictated By: Colten Duran DO, 11/06/2018 10:05 AM I have reviewed the study and agree with the findings in this report. Signed By: Sunil Ryan MD, 11/06/2018 10:11 AM Narrative Performed At EXAM: Transabdominal and Transvaginal Pelvic Ultrasound [facility] INDICATION: RLQ, LLQ pain COMPARISON: None TECHNIQUE: [...] A "PRELIMINARY" report was made available via Crovat at the time of dictation by the [...] A "PRELIMINARY" report was made available via Crovat at the time of dictation by the [...] A "PRELIMINARY" report was made available via Crovat at the time of dictation by the resident indicated below. The report is finalized if attending/staff radiologist signature is included. Dictated By: Colten Duran DO, 11/06/2018 10:05 AM I have reviewed the study and agree with the findings in this report. Signed By: Sunil Ryan MD, 11/06/2018 10:11 AM Performing Organization Address [facility] Phone Number SMS * CHLAM/GC DNA AMPLI (11/06/2018 3:00 AM CDT) Chlamydia trach Negative BT DIAGNOSTIC IMMUNOLOGY N gonorrhoeae Negative BT DIAGNOSTIC This test utilizes [employer] Aptima Combo 2 Assay for target amplification of rRNA for the qualitative detection of Chlamydia trachomatis and Neisseria gonorrhea. Spec Endovervical BT MAIN-STATION Description 2 Specimen Cervix - Endocervical Swab Performing Organization Address [facility] Phone Number MISYS BT DIAGNOSTIC IMMUNOLOGY BT MAIN-STATION 2 * WET MOUNT (11/06/2018 3:00 AM CDT) Spec Cervix BT MICROBIOLOGY Description Order Comments None BT MICROBIOLOGY Exam WBC's seen BT MICROBIOLOGY Epithelial cells No Clue cells seen No Trichomonas seen No yeast seen Report Status Final 11/06/2018 BT MICROBIOLOGY Specimen Cervix - Cervix, NOS Performing Organization Address [facility] Phone Number MISYS BT MICROBIOLOGY * BMP [...] MAIN-STATION Afr-Am 1 Specimen Performing Organization Address [facility] Phone [facility] * HIV-1/HIV-2 ROUTINE SCREENING (11/05/2018 11:36 AM CDT) HIV-1/HIV-2 Negative NEG BT MAIN-STATION 3 Specimen Performing Organization Address [facility] Phone [facility] * UA CHEMISTRIES (11/05/2018 11:36 AM CDT) Color Straw BT MAIN-STATION 3 Clarity Clear BT MAIN-STATION 3 Specific 1.005 1.001 - 1.035 BT MAIN-STATION [place] 3 pH 7.0 5 - 8 BT [...] MAIN-STATION 3 Specimen Urine Performing Organization Address [facility] Phone [facility] * TEST (11/05/2018 11:36 AM CDT) Negative BT MAIN-STATION 3 Specimen Urine Performing Organization Address [facility] Phone Number [facility] BT MAIN-STATION 3 * LIVER PROFILE (11/05/2018 [...] MAIN-STATION 1 Specimen Blood Performing Organization Address [facility]/Zipcode Phone Number MISYS BT MAIN-STATION 1 * LIPASE (11/05/2018 11:36 AM CDT) Lipase 32 11 - 82 U/L BT MAIN-STATION 1 Specimen Blood Performing Organization Address [facility] Phone Number MISYS BT MAIN-STATION 1 * [...] Phone Number MISYS BT MAIN-STATION 2 after 01/10/2018 Insurance Type Payer Benefit Subscriber ID Effective Phone Address Plan / Dates Group LALA LUNSFORD xxxxxxxxxx 2015-P [phone] [address] [facility] [id number] [place] [address]
--- OUTSIDE RECORDS SUMMARY | 2019-01-11 19:28 | XMS REPORT | Continuity of Care Document ---
Author Author [facility] Address Unknown Phone Unavailable Care Team Providers Care Shortage Worker Name Role Phone [facility] Unavailable Unavailable Problems Problem Status Onset Date Classification Date Reported Comments Source Headache 08/31/2018 Diagnosis 08/31/2018 [facility] ABD PAIN Active 07/12/2018 [facility] ACUTE APPENDICITIS Active 07/12/2018 [facility] Abnormal EKG Active Diagnosis 10/22/2018 [facility] SOB Active Diagnosis 10/22/2018 [facility] Other symptoms involving cardiovascular system Active Diagnosis 10/22/2018 [facility] Syncope and collapse Active Diagnosis 10/22/2018 [facility] Palpitations Active Diagnosis 10/22/2018 [facility] UNSPECIFIED ACUTE APPENDICITIS Active [facility] Medications Medication Details Route Status Patient [...] Brain Stroke wo contrast CT 07/14/2018 11:35 MAT MACHINE TENDER Ordering Physician: Celeste Pete MD Patient Name: KELSEA MEZA MR: [id number] : 1990; Age: 27 years y/o Female [...] not verified for review until 1316. SL: [id number] 07/14/2018 [facility] ED Abdomen/Pelvis IV contrast only CT Clinical Indication: - acute abd pain LLQ Comparison: None TECHNIQUE: Helical imaging was performed diaphragm through the symphysis with multiplanar reformations obtained. IV CONTRAST: 100cc Omnipaque 300 GI CONTRAST: No CT Radiation Dose: HPK=084.29 mGy-cm FINDINGS: LOWER CHEST: The lung bases [...] appendicitis. No free air or abscess. SL: [id number] 07/13/2018 [facility] Consultation Notes No Data Provided for [...] Date Status Source [place] - [facility] - [id number] Hutchison, MAINTENANCE CARPENTER-C: [address] [place] [address], Ph. [id number] Janeen Hutchison 08/30/2018 [facility] Procedures Procedure Code [...]
== END 2019-01-11 19:37 | disposition left against medical advice (07) ==
LOC: ER 19:16
DX: Z48.01 Encounter for change or removal of surgical wound dressing (principal)